=== PATIENT | female | born 1990 | race Caucasian/White ===

== ENCOUNTER 2020-03-14 17:58 | Outpatient (RCR) | payer BC, SELFPAY ==
[2020-03-14 18:31] VITALS: BP 118/78; PULSE 97
[2020-03-14 18:42] VITALS: BP 118/78; PULSE 94
== END 2020-04-05 08:07 | disposition home or self-care (01) ==
LOC: ANHOBOP 17:58
PROVIDERS: PCP Advanced Practice Midwife; Visit Provider Advanced Practice Midwife
DX: O36.8130 Decreased fetal movements, third trimester, not applicable or unspecified (principal); Z3A.37 37 weeks gestation of pregnancy
CPT/HCPCS: 59025

== ENCOUNTER 2020-04-03 10:33 | Inpatient (IN) | payer BC, SELFPAY ==
[2020-04-03] VITALS (159 sets, daily range): BP systolic 86–140; BP diastolic 47–108; PULSE 74–189; TEMP 36.4–38.1; O2SAT 86–100; BMI 31.8
--- NOTE | 2020-04-03 10:33 | LDADM ---
This patient, Yvonne Guzman, was admitted to Labor/Delivery/Recovery 102 on 04/03/20 at 10:33. Plans for labor, pain management and were discussed with patient. Patient/family oriented to hospital policies and general routines including ID bracelet, bed and alarms, visiting hours, pain management, procedures, bathroom and other care routines, personal items, smoking policy, room service/diet and guest tray routines, infant security routines, and visiting hours. Patient/Family are encouraged to report perceived risks to care and to ask questions if they do not understand what they are told or what they should do. See OBIX for further documentation.
[2020-04-03 11:38] LABS: Basophils Percent Auto 0.3 % (0.2-1.2); Eosinophils Absolute Auto 0.2 K/mm3 (0-0.3); Hematocrit 35.5 % (37.0-47.0); Immature Granulocyte Absolute 0.05 K/mm3 (0.00-0.031); Immature Granulocyte Percent A 0.5 % (0-0.5); Lymphocytes Absolute Auto 1.95 K/mm3 (0.9-3.2); Lymphocytes Percent Auto 19.8 % (18.3-44.2); Mean Corpuscular HGB Conc 33.8 g/dl (32-36); Mean Corpuscular Hemoglobin 30.5 pg (26-34); Mean Corpuscular Volume 90.1 fl (80-100); Mean Platelet Volume 11.9 fl (7.4-10.4); Monocytes Percent Auto 10.3 % (2.6-8.5); Neutrophils Absolute Auto 6.6 K/mm3 (1.3-6.7); Neutrophils Percent Auto 67.1 % (45.5-73.1); Platelet Count Result 219 k/mm3 (150-375); Red Blood Count 3.94 M/mm3 (4.2-5.4); Red Cell Distribution Width 13.4 % (11.5-14.5); White Blood Count 9.8 K/mm3 (4.5-10.0)
[2020-04-03] MEDS: LACTATED RINGERS 1,000 ML 125 ML IV CONT ×3 (11:45→20:18)
[2020-04-03] MEDS: OXYTOCIN 30 UNITS/NS 500 ML 30 UNITS/500 ML BAG IV CONT (11:45)
--- NOTE | 2020-04-03 13:35 | WPDANESEPP ---
Anes - Eval Pre Procedure Procedure: labor epidural Date/Time: 04/03/20 13:35 Surgeon: Ruben meraz Preop Diagnosis: Pain during labor Pre Op Diagnosis: IOL Patient Data Age: 30 Gender: F Height: 5 ft 4 in Weight: 84 kg Last Vital Signs Pulse 83 04/03/20 13:31 BP 128/91 H 04/03/20 13:31 Allergies Allergy/AdvReac Type Severity Reaction Status Date / Time amoxicillin Allergy Blister Verified 03/21/20 14:47 ceftriaxone Allergy Blister Verified 03/21/20 14:47 Sulfa (Sulfonamide Allergy Swelling Verified 03/21/20 14:47 Antibiotics) of Lip/Tongue/Throat Home Medications Medication Instructions Recorded Confirmed Type PNV cmb#95-ferrous fumarate-FA 1 tablet PO DAILY 03/21/20 03/21/20 History [] cetirizine [Zyrtec] 10 mg PO DAILY 03/21/20 03/21/20 History levothyroxine 50 mcg PO DAILY 03/21/20 03/21/20 History pantoprazole 40 mg PO QAM 03/21/20 03/21/20 History Laboratory Tests 04/03/20 04/03/20 11:17 11:17 WBC 9.8 K/mm3 K/mm3 (4.5-10.0) RBC 3.94 M/mm3 L M/mm3 (4.2-5.4) Hgb 12.0 g/dL g/dL (12.0-15.0) Hct 35.5 % L % (37.0-47.0) MCV 90.1 fl fl (80-100) MCH 30.5 pg pg (26-34) MCHC 33.8 g/dl g/dl (32-36) RDW 13.4 % % (11.5-14.5) Plt Count 219 k/mm3 k/mm3 (150-375) MPV 11.9 fl H fl (7.4-10.4) Immature Gran % (Auto) 0.5 % % (0-0.5) Neut % (Auto) 67.1 % % (45.5-73.1) Lymph % (Auto) 19.8 % % (18.3-44.2) Nance % (Auto) 10.3 % H % (2.6-8.5) Eos % (Auto) 2.0 % % (0-4.4) Baso % (Auto) 0.3 % % (0.2-1.2) Lymph # (Auto) 1.95 K/mm3 K/mm3 (0.9-3.2) Nance # (Auto) 1.0 K/mm3 H K/mm3 (0.1-0.6) Eos # (Auto) 0.2 K/mm3 K/mm3 (0-0.3) Baso # (Auto) 0.0 K/mm3 K/mm3 (0.0-0.1) Abs Immat Gran (auto) 0.05 K/mm3 H K/mm3 (0.00-0.031) Absolute Neuts (auto) 6.6 K/mm3 K/mm3 (1.3-6.7) Absolute Nucleated RBC 0.0 K/mm3 K/mm3 (0.0-0.012) Nucleated RBC % 0.0 % % (0.0-0.2) RPR Pending : gestational age (URIEL 03/30/2020) Patient hx anesthesia problems: none Family hx anesthesia problems: none COUNTS INCLUDE 234 BEDS AT THE [facility] Past Medical History Medical History Hypothyroid Obese Family History Family History Mother Hypertension Diabetes type 2, controlled Rheumatoid arteritis Depression Father Hypertension Acute myocardial infarction Grandparent Cerebrovascular accident Brain aneurysm Sibling Depression Degenerative disc disease Asthma Social History Social History Smoking status: Never smoker Second hand tobacco smoke exposure: No Substance use: never Spiritual care concerns: No Exam Day of Procedure 04/03/20 13:35 Patient weight: obese Heart: regular rate and rhythm Lungs: clear to auscultation Neurological: alert and oriented
--- NOTE | 2020-04-03 22:19 | WPDOBADMIT ---
Obstetrics - Admit Note Admission Note: 30 y/o G1 @ 40w4d sent over for induction of labor. Pt is post dates with oligohydramnios. Discussed risk vs benefit and pt agreeable to induction. record reviewed. No pertinent additions to the history and/or any subsequent changes in the physical findings that are not consistent with the expected course of the were found. Additions to the history and/or subsequent changes in the physical findings follow. None.
[2020-04-04] VITALS (31 sets, daily range): BP systolic 105–149; BP diastolic 34–116; PULSE 74–143; RESP 16–18; TEMP 36.6–37.3; O2SAT 98–100
[2020-04-04] MEDS: OXYTOCIN 30 UNITS/NS 500 ML 30 UNITS/500 ML BAG 125 UNITS IV CONT (00:27)
--- NOTE | 2020-04-04 01:44 | PM.OBPRVD ---
OB - Delivery Note Procedure Delivery date: 04/03/20 events: Labor Induction and Low Fluid Volume in Amniotic Sac Intrapartal events: None Delivery monitor: external FHT, external uterine and internal FHT Route of delivery: Episiotomy description: None Laceration description: Perineal - 2nd Degree Delivery repair: vicryl Estimated blood loss (mL): 312 Anesthesia type: Epidural Baby Date of : 04/03/20 Time of : 23:58 Weeks of gestation at delivery: 40 Infant gender: Female Weight (pounds): 8 Weight (ounces): 0 presentation: vertex position: Left Occiput Anterior Placenta delivery description: Spontaneous cord vessel description: 3 Vessels score one minute: 8 score five minutes: 9
[2020-04-04] MEDS: IBUPROFEN 600 MG TABLET PO ×4 (02:00→21:09)
[2020-04-04] MEDS: LACTATED RINGERS 300 ML 999 ML IV CONT (03:15)
--- NOTE | 2020-04-04 03:23 | OBPPTRN ---
Patient transferred to post room #290 via wheelchair. Support person present. Oriented to unit, room, information board, rooming in, admission packet and security measures. Patient verbalizes understanding. with patient.
[2020-04-04 07:45] LABS: Rapid Plasma Reagin Non-Reactive (NonReactive)
--- NOTE | 2020-04-04 08:34 | P.PNOB_ITS ---
OB - PN: Subj Subjective Date/time seen: 04/04/20 08:34 Patient comments: no complaints, pain well controlled, incisional pain, tolerating diet and flatus present OB - PN: Obj Data Labs CBC & Chem 7: 04/03/20 11:17 Labs: Laboratory Results - last 24 hr 04/03/20 04/03/20 04/03/20 11:17 11:17 11:17 WBC 9.8 RBC 3.94 L Hgb 12.0 Hct 35.5 L MCV 90.1 MCH 30.5 MCHC 33.8 RDW 13.4 Plt Count 219 MPV 11.9 H Immature Gran % (Auto) 0.5 Neut % (Auto) 67.1 Lymph % (Auto) 19.8 Guadalupe % (Auto) 10.3 H Eos % (Auto) 2.0 Baso % (Auto) 0.3 Lymph # (Auto) 1.95 [place]upe # (Auto) 1.0 H Eos # (Auto) 0.2 Baso # (Auto) 0.0 Abs Immat Gran (auto) 0.05 H Absolute Neuts (auto) 6.6 Absolute Nucleated RBC 0.0 Nucleated RBC % 0.0 RPR Non-reactive Blood Type O Positive Antibody Screen Negative OB - PN A/P Plan day: 1 Plan: routine care Comments: No problems, routine care Time Spent With Patient Time: Total time spent is greater than 50% in coordination of care (as documented) at patient's floor/unit and/or counseling patient: Exam Const: General: comfortable, no acute distress and alert Resp: Effort & Inspection: normal respiratory effort Auscultation: no crackles, no rales and no rhonchi Cardio: Rate: regular rate Heart sounds: no click, no murmurs and no rubs GI: Inspection: non-distended GI Palp: No Tenderness to palpation present (GI) Auscultation: normal bowel sounds Other: Incision - CDI Extrem: General: normal to inspection, no pedal edema and no calf tenderness
[2020-04-04] MEDS: DOCUSATE SODIUM 100 MG CAPSULE PO (08:49)
[2020-04-04] MEDS: MULTIVIT/MIN/PREN/FOL AC/IRON TABLET 1 TAB PO (08:49)
--- NOTE | 2020-04-04 08:58 | WPDANLDPN2 ---
Anes-Prog Note L&D Date/Time: 04/04/20 08:58 Comfortable throughout: labor and delivery Neuraxial method: epidural Epidural/Spinal procedure site: clean & non-tender Neuro status: Neuro function grossly intact. Cardiovascular status: normal Respiratory status: normal Airway patency: baseline Mental status: baseline Post-Op hydration status: normal Vital Signs: Last Vital Signs Temp 36.6 C 04/04/20 03:23 Pulse 98 04/04/20 07:00 Resp 16 04/04/20 07:00 BP 119/78 04/04/20 03:23 Pulse Ox 100 04/04/20 07:00 I/O: Intake & Output 04/03/20 04/04/20 04/04/20 23:59 07:59 15:59 Intake Total 1100 500 Output Total 472 Balance 1100 28 Post-procedural complaints: nausea mild, no treatment and pruritis mild, no treatment Patient feedback: Patient satisfied with anesthetic care.
--- NOTE | 2020-04-04 11:20 | PC.NURSE ---
Consulted with patient, mother reports infant is fussy and has difficulties with latching. Mother is using the nipple shield for all feedings. Observed has a possible tight tongue. Discussed how the tongue may impact latch and empting the breast. Mother has bruising to right nipple from shallow latch. Discussed nipple shield precautions and possible complications. Instructions given on application and cleaning of shield. Patient able to return demonstration on proper application of shield. Discussed the need to initiate pumping if continues to nurse with the shield. Patient verbalizes understanding. Reviewed feeding cues, frequencies, duration of feedings, feeding elimination flow sheet, and signs of adequate intake. Demonstrated stimulation techniques to wake infant for feeding. Assisted with to breast with nipple shield. Reviewed positioning/alignment in cross cradle, holding breast in U hold and guided asymmetrical latch on. Infant was able to latch correctly. Infant nursed eagerly with steady draws for bursts with occasional swallowing noted. Reviewed signs of a correct latch, effective nursing and suck swallow ratio. Infant was able to maintain latch without discomfort to mother. Nipple care reviewed. Suggested to stimulate while feeding to keep awake and nursing effectively for increased intake and to assist infant with maintaining deep latch. Instructed mother to call out for RN assistance if she is unable to latch for feeding or she has discomfort with nursing. Instructed feeding should be initiated three hours from start of last feeding or if feeding cues are noted before. Mother voiced understanding of information shared.
--- NOTE | 2020-04-04 12:00 | PC.NURSE ---
Instructions given on mother's breast pump from home reviewed care and usage, pumping schedule, nipple care, and collection and storage of breast milk. Encouraged [id number], breast massage and manual expression to stimulate supply. Assessed patient for correct flange size, placement and draw. Patient verbalizes and demonstrates understanding of instructions.
[2020-04-05] MEDS: IBUPROFEN 600 MG TABLET PO (04:10)
[2020-04-05 04:17] LABS: Hemoglobin 8.3 g/dL (12.0-15.0)
[2020-04-05 07:30] VITALS: BP 109/73; PULSE 90; RESP 18; TEMP 36.9; O2SAT 98
[2020-04-05 07:34] VITALS: PULSE 104; RESP 18; O2SAT 98
--- NOTE | 2020-04-05 07:46 | PM.OBPNVD ---
OB - PN: Subj Subjective Date/time seen: 04/05/20 07:46 Patient comments: no complaints, pain well controlled and other (Lochia similar to menses) [place] baby status: doing well OB - PN: Obj Data Labs CBC & Chem 7: 04/05/20 04:09 Labs: Laboratory Results - last 24 hr 04/05/20 04:09 Hgb 8.3 L D Hct 25.0 L OB - PN A/P Plan day: 2 (s/p vaginal delivery, doing well) Plan: routine care, discharge home and other (Follow up in office in 4 weeks) Time Spent With Patient Time: Total time spent is greater than 50% in coordination of care (as documented) at patient's floor/unit and/or counseling patient: Exam Const: General: no acute distress GI: Inspection: other (Fundus firm and nontender below umbilicus) GI Palp: Yes Soft to palpation and No Tenderness to palpation present (GI) Extrem: General: no edema
[2020-04-05] MEDS: POLYSACCHARIDE IRON COMPLEX 150 MG CAPSULE PO (09:05)
[2020-04-05] MEDS: MULTIVIT/MIN/PREN/FOL AC/IRON TABLET 1 TAB PO (09:05)
[2020-04-05] MEDS: DOCUSATE SODIUM 100 MG CAPSULE PO (09:05)
--- NOTE | 2020-04-05 11:20 | PC.NURSE ---
Mother is able to independently latch with appropriate positioning/alignment using nipple shield. She denies any nipple discomfort, is feeding as required and waking to feed if needed. Infant continues with effective feeding and requires supplementation after each . is more eager with attempts and duration after frenulectomy. Mother will continue to pump and offer EBM as available as part of supplement. is currently meeting outcomes for weight, output, jaundice and feeding frequencies. Mother states she feels comfortable with current feeding plan of bottle/ at home. Reviewed techniques for tongue training to assist infant with deep latch and tongue thrusting. Discussed signs when may require increased supplementation and when may be ready to decrease supplementation. Discussed mother can discontinue pumping once infant is able adequately empty breast to satisfaction and is gaining weight. Advised to review discontinuation of supplementation with ICP first. Reviewed transition to breast milk, signs of adequate intake, and engorgement/relief. Instructed to call ICP if intake/output less than required. Reviewed regular medications mother is taking. Information provided per [place]. Reviewed community resources on the [facility] website and in the Mom/Baby guide. Information on outpatient services provided. Mother has no further questions at this time
--- NOTE | 2020-04-05 13:08 | PC.NURSE ---
Patient viewed the discharge video Mother & Baby Care, The First Two Weeks . Patient was given the opportunity and encouraged to ask questions. Patient verbalized understanding of information shared and has been given the mother/baby guide for home reference.
[2020-04-06 08:33] VITALS: BP 111/79; PULSE 88; RESP 20; O2SAT 100
--- NOTE | 2020-05-01 07:43 | PM.OBDSVD ---
DS: Admitting Diagnosis Admitting Diagnosis Admitting Diagnosis: IOL DS: Discharge Diagnosis Discharge Diagnosis (1) Vaginal delivery: Code(s): O80 - Encounter for full-term uncomplicated delivery Status: Acute OB - DS: Summary Hospital Course Time spent discussing smoking cessation with patient: 3 to 10 minutes OB Procedures : None OB Procedures Intrapartum: Spontaneous Vag Delivery OB Procedures: : None Peripartum Data Delivery Method: Natural Vaginal Laceration description: Perineal - 2nd Degree complications: none Time Spent with Patient Time attestation: Total time spent providing and/or coordinating discharge services: DS: Data Data Completed and Pending Completed studies during hospitalization: Pending at discharge 04/04/20 01:50 Surgical [PTH] Routine Discharge Plan Discharge Consulting providers: Shakila Wright Discharging Clinician: Andree Contreras Anticipated Discharge Date/Time: 04/05/20 07:48 Patient Disposition: Home, Self-Care Activity: other - see discharge instructions Diet: regular Discharge Instructions: Education: Mom and Baby Guide Given to: Mother Follow-Up: Call your delivering provider's office for an appointment to be seen in: 4 Weeks Mom and baby should come to the [facility] for the follow-up appointment. Appointment Date/Time: March at 8:00 a.m. What to expect at your follow-up visit: Blood Pressure Check Physical Assessment Call [phone] if you are unable to keep your appointment time. BREAST CARE: * Wear a snug supportive bra. * For engorgement discomfort: Breast Feeding: * Apply warm moist washcloths * Express milk as needed to relieve engorgement * Wear loose clothing * For sore nipples: * Identify correct latch-on * Apply warm moist washcloths before and after nursing * Air dry nipples after nursing * May apply Lansinoh cream to nipples EPISIOTOMY/PERINEAL CARE: * Until bleeding stops, use your maureen bottle after urinating * Change your pad frequently throughout the day * You may take sitz baths several times a day (fill your bathtub with warm water and soak for 20 minutes.) Do NOT bathe in the water * No tub baths until seen by your physician - You may shower ACTIVITY: * Rest as much as possible. * Do not exercise or lift anything heavier than your baby (such as laundry or other children.) * Avoid stairs or driving as much as possible. * Do not put anything into the vagina. No douching, tampons, or sexual activity until seen by physician. NOTIFY PHYSICIAN IF YOU HAVE ANY QUESTIONS OR IF ANY OF THE FOLLOWING SYMPTOMS OCCUR: * If your perineum becomes red, swollen, or more painful than what you have experienced in the hospital. * If your vaginal bleeding becomes foul smelling. * If your vaginal bleeding becomes more heavy than a period or if your bleeding changes from pink to bright red. However, you may pass an occasional walnut-sized clot once or twice for the first week . * If you experience a sharp, shooting pain in you calves. * If you discover a hard, reddened area on your breast or if you experience flu-like symptoms. DIET: * Eat regular, well-balanced meals. * Drink plenty of fluids daily. If , drink to thirst. Stand Alone Forms: General Discharge Information Follow-up/Referrals: Ruben Espinosa MD [Physician] - Discharge Medications: New ibuprofen 600 mg Tablet 600 mg PO Q6H PRN (Reason: Cramping) Qty: 60 RF: 0 Continued cetirizine [Zyrtec] 10 mg Tablet 10 mg PO DAILY RF: 0 levothyroxine 50 mcg Tablet 50 mcg PO DAILY RF: 0 pantoprazole 40 mg Tablet,Delayed Release (Dr/Ec) 40 mg PO QAM RF: 0 PNV cmb#95-ferrous fumarate-FA [] 28 mg iron- 800 mcg Tablet 1 tablet PO DAILY RF:
== END 2020-04-05 14:30 | disposition home or self-care (01) | DRG 806 ==
LOC: ANHOB2 04-05 13:16 → ANHLDR 04-06 09:50 → ANHOB2 04-06 09:50
PROVIDERS: Admitting Provider Obstetrics & Gynecology; PCP Advanced Practice Midwife; Visit Provider Obstetrics & Gynecology
DX: O41.03X0 Oligohydramnios, third trimester, not applicable or unspecified (principal); O75.2 Pyrexia during labor, not elsewhere classified; Z37.0 Single live birth; Z3A.40 40 weeks gestation of pregnancy; O48.0 Post-term pregnancy; O70.1 Second degree perineal laceration during delivery; O99.284 Endocrine, nutritional and metabolic diseases complicating childbirth; E03.9 Hypothyroidism, unspecified; O99.214 Obesity complicating childbirth; E66.9 Obesity, unspecified
CPT/HCPCS: 36415; 85014; 85018; 85025; 86592; 86850; 86900; 86901; 88307; A9270; J0131; J2590; J2795; J7120

== ENCOUNTER 2020-04-11 22:08 | Emergency (ER) | payer BC, SELFPAY ==
--- NOTE | ~2020-04-11 | CT_ITS ---
EXAMINATION: CT abdomen pelvis wo con DATE: 04/11/2020 22:50 INDICATION: Right-sided abdominal pain, vaginal delivery eight days ago TECHNIQUE: Computed tomography (CT) of the abdomen and pelvis was performed without intravenous contr ast. The dose-length product (DLP) was 476.17 mGy-cm. Automated exposure control and iterative recons truction technique were employed. COMPARISON: None FINDINGS: The lung bases are clear. The heart size is normal. The liver, spleen, pancreas, gallbladde r, and adrenal glands are normal. The kidneys are unremarkable. No pathologically enlarged abdominal or pelvic lymph nodes are identified. There is no free intraperitoneal gas or evidence of bowel obstr uction. The appendix is normal. The uterus is enlarged. There is hyperattenuating material in the endometrial canal and endocervical canal. The visualized osseous structures are unremarkable. IMPRESSION: 1. appearance of the uterus with hyperattenuating material within the endometrial and endo cervical canal. Findings could reflect hemorrhage. Evaluation is limited without intravenous contrast . Recommend direct visualization and consider pelvic ultrasound. These findings and recommendations w ere discussed with Dr. Kenia Plummer MD in the Emergency Department at 2314 hours on 04/11/2020. Reviewed, dictated and finalized at location A. IMPRESSION: 1. appearance of the uterus with hyperattenuating material within th e endometrial and endocervical canal. Findings could reflect hemorrhage. Evalua tion is limited without intravenous contrast. Recommend direct visualization an d consider pelvic ultrasound. These findings and recommendations were discussed with Dr. Kenia Plummer MD in the Emergency Department at 2314 hours on 020.
[2020-04-11 22:19] VITALS: BP 120/77; PULSE 74; RESP 20; TEMP 37; O2SAT 100
--- NOTE | 2020-04-11 22:36 | ED.GENADULT ---
HPI - General Adult General Chief complaint: Unspecified Stated complaint: SHARP SHOOTING SIDE PAINS Time Seen by Provider: 04/11/20 22:17 Source: patient History of Present Illness HPI narrative: Patient is a 30 y/o female complaining or right mid abdominal pain starting 1 hour ago. She describes her pain as sharp and rates it as 10/10. Her pain radiates to upper abdomen. There is no alleviating or exacerbating factor. Her pain resolved spontaneously. She has no vomiting, diarrhea or dysuria. She had vaginal delivery 8 days ago. She also feels some generalized weakness, dizziness. Related Data Home Medications Medication Instructions Recorded Confirmed PNV cmb#95-ferrous fumarate-FA 1 tablet PO DAILY 03/21/20 03/21/20 [] cetirizine [Zyrtec] 10 mg PO DAILY 03/21/20 03/21/20 levothyroxine 50 mcg PO DAILY 03/21/20 03/21/20 pantoprazole 40 mg PO QAM 03/21/20 03/21/20 Allergies Allergy/AdvReac Type Severity Reaction Status Date / Time amoxicillin Allergy Blister Verified 04/11/20 22:35 ceftriaxone Allergy Blister Verified 04/11/20 22:35 Sulfa (Sulfonamide Allergy Swelling Verified 04/11/20 22:35 Antibiotics) of Lip/Tongue/Throat Review of Systems Constitutional: Constitutional: Denies chills, Denies fever(s), Denies headache(s) and Reports weakness Eyes: Eyes: Denies blurry vision ENT: Denies headache(s) and Denies neck pain Cardiovascular: Cardiovascular: Denies chest pain and Denies dyspnea Respiratory: Respiratory: Denies cough and Denies dyspnea Gastrointestinal: Gastrointestinal: Reports abdominal pain, Denies diarrhea, Denies nausea and Denies vomiting Genitourinary: Genitourinary: Denies hematuria, Denies dysuria and Reports other (post vaginal bleed) Musculoskeletal: Musculoskeletal: Denies back pain and Denies neck pain Neurologic: Denies headache(s) and Reports weakness PMFSH Past Medical History Medical History Hypothyroid Obese Family History Family History Mother Hypertension Diabetes type 2, controlled Rheumatoid arteritis Depression Father Hypertension Acute myocardial infarction Grandparent Cerebrovascular accident Brain aneurysm Sibling Depression Degenerative disc disease Asthma Social History Social History Smoking status: Never smoker Second hand tobacco smoke exposure: No Substance use: never Gender identity (if verbalized by the patient): Female Spiritual care concerns: No Exam Const: General: no acute distress and well developed Orientation/consciousness: oriented to person, oriented to place, oriented to time and patient oriented x3 HENMT: Head: normocephalic Ears: external ears normal General nose exam: Normal external nose present Eyes: General: appearance normal, both eyes and all related structures Conjunctivae: conjunctivae normal Neck: Neck: normal visual inspection and full ROM Chest: Chest palpation & inspection: normal inspection of the chest and no tenderness Resp: Effort & Inspection: normal respiratory effort Auscultation: clear to auscultation bilaterally Cardio: Rate: regular rate Rhythm: regular rhythm GI: GI Palp: No abdominal tenderness and Yes Soft to palpation Skin: General skin exam: normal color and turgor normal Neuro: General: oriented to person, oriented to place, oriented to time and patient oriented x3 Cognition (Neuro): normal cognition Extrem: General: normal to inspection, full ROM and no pedal edema Psych: Appearance: grossly normal Mental Status: mental status grossly normal Affect: normal affect Course Consultations Consultation #1: Discussed with Dr. Espinosa, who agrees with plan for discharge and follow up. Date: 04/11/20 Time: 23:46 Vital Signs Vital signs: Vital Signs Temperature 37.0 C 04/11/20 22:19 P
[2020-04-11 22:50] LABS: Basophils Absolute Auto 0.1 K/mm3 (0.0-0.1); Basophils Percent Auto 0.8 % (0.2-1.2); Eosinophils Absolute Auto 0.4 K/mm3 (0-0.3); Eosinophils Percent Auto 4.9 % (0-4.4); Hematocrit 33.9 % (37.0-47.0); Immature Granulocyte Absolute 0.03 K/mm3 (0.00-0.031); Immature Granulocyte Percent A 0.4 % (0-0.5); Lymphocytes Absolute Auto 2.67 K/mm3 (0.9-3.2); Lymphocytes Percent Auto 34.4 % (18.3-44.2); Mean Corpuscular HGB Conc 32.4 g/dl (32-36); Mean Corpuscular Volume 92.4 fl (80-100); Mean Platelet Volume 9.9 fl (7.4-10.4); Monocytes Absolute Auto 0.9 K/mm3 (0.1-0.6); Neutrophils Absolute Auto 3.7 K/mm3 (1.3-6.7); Neutrophils Percent Auto 47.5 % (45.5-73.1); Platelet Count Result 402 k/mm3 (150-375); Red Blood Count 3.67 M/mm3 (4.2-5.4); Red Cell Distribution Width 13.7 % (11.5-14.5); White Blood Count 7.8 K/mm3 (4.5-10.0)
[2020-04-11 23:01] LABS: Alanine Aminotransferase 20 U/L (4-35); Albumin Level 3.6 g/dL (3.5-5.1); Alkaline Phosphatase 110 U/L (38-126); Anion Gap 8 mmol/L (8-16); Aspartate Amino Transferase 26 U/L (14-36); Bilirubin,Total 0.3 mg/dL (0.2-1.3); Blood Urea Nitrogen 20 mg/dL (7-17); Calcium 8.8 mg/dL (8.4-10.2); Carbon Dioxide 22 mmol/L (22-30); Chloride 107 mmol/L (98-107); Estimated CRCL calculation 99 ml/min; Estimated Glomerular Filt Rate > 60; Glucose 100 mg/dL (65-105); Potassium 4.1 mmol/L (3.4-5.0); Sodium 137 mmol/L (137-145)
[2020-04-11 23:13] LABS: Add Urine Microscopic? YES; Appearance Urine Clear (Clear); Bacteria Urine 1+ /hpf; Bilirubin Urine Negative (Negative); Blood Urine 3+ (Negative); Color Urine Yellow (Yellow); Glucose Urine UA Negative (Negative); Ketones Urine Negative (Negative); Leukocyte Esterase Ur 3+ LEU/UL (Negative); Mucus Urine Few /lpf; Nitrate Urine Negative (Negative); Protein Urine 1+ mg/dL (Negative); RBC Urine >75 /hpf (0-2); Squamous Epithelial Cell Urine Moderate /hpf (Few); Urobilinogen Urine Negative mg/dL (<2.0); WBC Urine >75 /hpf
[2020-04-11 23:20] LABS: INR 0.9
[2020-04-11 23:21] LABS: Partial Thromboplastin Time 25.8 SECONDS (22.3-36.8)
[2020-04-12 00:25] VITALS: BP 114/82; PULSE 69; RESP 17; O2SAT 97
== END 2020-04-12 00:25 | disposition home or self-care (01) ==
PROVIDERS: Emergency Provider Emergency Medicine; PCP Advanced Practice Midwife
DX: O90.89 Other complications of the puerperium, not elsewhere classified (principal); R10.11 Right upper quadrant pain; O99.285 Endocrine, nutritional and metabolic diseases complicating the puerperium; E03.9 Hypothyroidism, unspecified; E66.9 Obesity, unspecified; O99.215 Obesity complicating the puerperium
CPT/HCPCS: 36415; 74176; 80053; 81001; 84550; 85025; 85610; 85730; 87077; 87086; 87088; 87186; 99284

== ENCOUNTER 2022-05-02 10:08 | Outpatient (CLI) | payer BC, SELFPAY ==
[2022-05-02 10:43] VITALS: BP 109/69; PULSE 83
[2022-05-02 10:45] VITALS: BP 114/70; PULSE 82
[2022-05-02 10:46] VITALS: TEMP 36.9
[2022-05-02 10:58] VITALS: BP 114/70; PULSE 81
== END 2022-05-02 11:03 | disposition home or self-care (01) ==
LOC: ANHOBOP 10:13 → ANHOBPP 10:13
PROVIDERS: PCP Physician Assistant Medical; Visit Provider Obstetrics & Gynecology
DX: O41.8X90 Other specified disorders of amniotic fluid and membranes, unspecified trimester, not applicable or unspecified (principal)
CPT/HCPCS: 59025; 84112; 99199

== ENCOUNTER 2022-06-29 10:30 | Outpatient (CLI) | payer BC, SELFPAY ==
[2022-06-29] VITALS (10 sets, daily range): BP systolic 117–132; BP diastolic 72–80; PULSE 83–103; O2SAT 96–98
[2022-06-29 11:22] LABS: Basophils Percent Auto 0.4 % (0.2-1.2); Eosinophils Absolute Auto 0.2 K/mm3 (0-0.3); Eosinophils Percent Auto 2.3 % (0-4.4); Hematocrit 37.5 % (37.0-47.0); Hemoglobin 12.4 g/dL (12.0-15.0); Immature Granulocyte Absolute 0.06 K/mm3 (0.00-0.031); Immature Granulocyte Percent A 0.6 % (0-0.5); Lymphocytes Absolute Auto 2.27 K/mm3 (0.9-3.2); Lymphocytes Percent Auto 21.9 % (18.3-44.2); Mean Corpuscular HGB Conc 33.1 g/dl (32-36); Mean Corpuscular Hemoglobin 30.5 pg (26-34); Mean Corpuscular Volume 92.1 fl (80-100); Mean Platelet Volume 11.1 fl (7.4-10.4); Monocytes Absolute Auto 0.7 K/mm3 (0.1-0.6); Monocytes Percent Auto 6.9 % (2.6-8.5); Neutrophils Percent Auto 67.9 % (45.5-73.1); Platelet Count Result 231 k/mm3 (150-375); Red Blood Count 4.07 M/mm3 (4.2-5.4); Red Cell Distribution Width 13.2 % (11.5-14.5); White Blood Count 10.4 K/mm3 (4.5-10.0)
[2022-06-29 12:00] LABS: Appearance Urine Clear (Clear); Bilirubin Urine Negative (Negative); Blood Urine Negative (Negative); Color Urine Yellow (Yellow); Glucose Urine UA Negative (Negative); Ketones Urine Trace mg/dL (Negative); Leukocyte Esterase Ur Negative LEU/UL (NEGATIVE); Nitrate Urine Negative (Negative); Protein Urine Trace mg/dL (Negative); Specific Grav Ur 1.025 (1.001-1.035); Urobilinogen Urine 0.2 mg/dL (<2.0); pH Urine 6.5 (5.0-9.0)
[2022-06-29 12:10] LABS: Add Urine Microscopic? YES; Alanine Aminotransferase 15 U/L (6-35); Albumin Level 3.4 g/dL (3.5-5.1); Anion Gap 6 mmol/L (8-16); Aspartate Amino Transferase 19 U/L (14-36); Bacteria Urine Trace /hpf; Bilirubin,Total 0.4 mg/dL (0.2-1.3); Blood Urea Nitrogen 7 mg/dL (7-17); Calcium 8.4 mg/dL (8.4-10.2); Carbon Dioxide 22 mmol/L (22-30); Chloride 107 mmol/L (98-107); Estimated Glomerular Filt Rate > 60; Glucose 116 mg/dL (65-110); Mucus Urine Rare /lpf; Potassium 3.5 mmol/L (3.4-5.0); RBC Urine 0-2 /hpf (0-2); Sodium 135 mmol/L (137-145); Squamous Epithelial Cell Urine Few /hpf (Few); Uric Acid 4.6 mg/dL (2.5-7.5); WBC Urine 0-3 /hpf (0-3)
[2022-06-29 12:18] LABS: Creatinine Urine 188.6 mg/dL
[2022-06-29 12:28] LABS: Total Protein Urine Random < 5 mg/dL; Ur Ttl Prot Creatinine Ratio < 0.03 mg/mg (0-0.20)
[2022-06-29 12:35] LABS: Alkaline Phosphatase 152 U/L (38-126)
== END 2022-06-29 12:50 | disposition home or self-care (01) ==
LOC: ANHOBOP 10:36 → ANHOBPP 10:37
PROVIDERS: PCP Physician Assistant Medical; Visit Provider Obstetrics & Gynecology
DX: O13.9 Gestational [pregnancy-induced] hypertension without significant proteinuria, unspecified trimester (principal); Z3A.00 Weeks of gestation of pregnancy not specified
CPT/HCPCS: 36415; 59025; 80053; 81001; 82570; 84156; 84550; 85025; 87086; 99199

== ENCOUNTER 2022-07-01 11:17 | Outpatient (CLI) | payer BC, SELFPAY ==
--- NOTE | 2022-07-01 12:00 | PC.NURSE ---
Pt states she has had cough since last week. States noted fluid from vagina with coughing last night that she thought was urine. Denies fever. Had PI[facility] labs Friday from for elevated blood pressure. Denies any other complaint, other than fluid leaking.
[2022-07-01 12:35] VITALS: BP 125/84; PULSE 96
--- NOTE | 2022-07-01 12:35 | PC.NURSE ---
Dr. St on unit. Report given, pt has negative ROM and reactive FHT. OK to discharge home.
== END 2022-07-01 11:18 | disposition home or self-care (01) ==
LOC: ANHOBOP 12:25
PROVIDERS: PCP Physician Assistant Medical; Visit Provider Obstetrics & Gynecology
DX: O41.8X90 Other specified disorders of amniotic fluid and membranes, unspecified trimester, not applicable or unspecified (principal)
CPT/HCPCS: 59025; 84112

== ENCOUNTER 2022-07-09 06:08 | Inpatient (IN) | payer BC, SELFPAY ==
[2022-07-09] VITALS (166 sets, daily range): BP systolic 61–144; BP diastolic 10–91; PULSE 36–277; TEMP 36.6–37; O2SAT 82–100; BMI 31.8
--- NOTE | 2022-07-09 06:08 | LDADM ---
This patient, Yvonne Guzman, was admitted to Labor/Delivery/Recovery 107 on 07/09/22 at 06:08. Plans for labor, pain management and were discussed with patient. Patient/family oriented to hospital policies and general routines including ID bracelet, bed and alarms, visiting hours, pain management, procedures, bathroom and other care routines, personal items, smoking policy, room service/diet and guest tray routines, security routines, and visiting hours. Patient/Family are encouraged to report perceived risks to care and to ask questions if they do not understand what they are told or what they should do. See OBIX for further documentation.
[2022-07-09 06:58] LABS: Basophils Absolute Auto 0.1 K/mm3 (0.0-0.1); Basophils Percent Auto 0.5 % (0.2-1.2); Eosinophils Absolute Auto 0.2 K/mm3 (0-0.3); Hematocrit 40.2 % (37.0-47.0); Hemoglobin 13.3 g/dL (12.0-15.0); Immature Granulocyte Absolute 0.09 K/mm3 (0.00-0.031); Immature Granulocyte Percent A 0.8 % (0-0.5); Lymphocytes Absolute Auto 2.81 K/mm3 (0.9-3.2); Lymphocytes Percent Auto 25.8 % (18.3-44.2); Mean Corpuscular HGB Conc 33.1 g/dl (32-36); Mean Corpuscular Hemoglobin 30.6 pg (26-34); Mean Corpuscular Volume 92.6 fl (80-100); Mean Platelet Volume 11.2 fl (7.4-10.4); Monocytes Absolute Auto 1.1 K/mm3 (0.1-0.6); Monocytes Percent Auto 9.9 % (2.6-8.5); Neutrophils Absolute Auto 6.7 K/mm3 (1.3-6.7); Platelet Count Result 219 k/mm3 (150-375); Red Blood Count 4.34 M/mm3 (4.2-5.4); Red Cell Distribution Width 13.2 % (11.5-14.5); White Blood Count 10.9 K/mm3 (4.5-10.0)
[2022-07-09] MEDS: OXYTOCIN 30 UNITS/NS 500 ML 30 UNITS/500 ML BAG IV CONT (07:08)
[2022-07-09] MEDS: LACTATED RINGERS 1,000 ML 125 ML IV CONT ×3 (07:08→16:34)
--- NOTE | 2022-07-09 07:46 | PM.IMHP ---
H&P: HPI History of Present Illness Date/Time: 07/09/22 07:46 Chief Complaint: Induction of labor Review of Systems Review of Systems: All systems reviewed & are unremarkable except as noted in HPI and below Constitutional: Constitutional: Reports as per HPI and Reports no additional constitutional complaints Eyes: Eyes: Reports as per HPI ENT: Reports system reviewed and no additional complaints, except as documented Cardiovascular: Cardiovascular: Reports as per HPI Respiratory: Respiratory: Reports as per HPI Gastrointestinal: Gastrointestinal: Reports as per HPI Genitourinary: Genitourinary: Reports no additional female genitourinary complaints Musculoskeletal: Musculoskeletal: Reports no additional musculoskeletal complaints Integumentary/Breasts: Skin/Breast: Reports system reviewed and no additional complaints, except as docu Neurologic: Reports system reviewed and no additional complaints, except as documented Psychiatric: Psychiatric: Reports no additional psychiatric complaints Endocrine: Endocrine: Reports no additional endocrine complaints Hematologic/Lymphatic: Hematologic/Lymphatic: Reports no additional hematologic/lymphatic complaints Allergic/Immunologic: Allergic/Immunologic: Reports no additional allergic/immunologic complaints [facility] Past Medical History Medical History Asthma Hypothyroid Seasonal allergies Family History Family History Mother Hypertension Diabetes type 2, controlled Rheumatoid arteritis Depression Father Hypertension Acute myocardial infarction Grandparent Cerebrovascular accident Brain aneurysm Sibling Depression Degenerative disc disease Asthma Social History Social History Smoking status: Never smoker Second hand tobacco smoke exposure: No Substance use: never Gender identity (if verbalized by the patient): Female Spiritual care concerns: No Meds Home Medications and Allergies Home Medications Medication Instructions Recorded Confirmed Type cetirizine 10 mg tablet (Zyrtec) 10 mg PO DAILY 03/21/20 07/09/22 History pantoprazole 40 mg tablet,delayed 40 mg PO BID 03/21/20 07/09/22 History release vit no.95-ferrous 1 tablet PO DAILY 03/21/20 07/09/22 History fumarate 28 mg-folic acid 800 mcg tablet () albuterol sulfate 90 mcg/actuation 1 - 2 puff inhalation Q4-6H PRN 03/11/22 07/09/22 Rx aerosol inhaler (ProAir HFA) shortness of breath or wheezing #8.5 grams diphenhydramine HCl 25 mg capsule 25 mg PO QHS PRN Allergy Symptoms 03/11/22 07/09/22 History (Benadryl) montelukast 10 mg tablet 10 mg PO DAILY 03/11/22 07/09/22 History doxylamine succinate 25 mg tablet 12.5 mg PO HS 05/02/22 07/09/22 History (Unisom (doxylamine)) pyridoxine (vitamin B6) 25 mg 100 mg PO HS 05/02/22 07/09/22 History tablet levothyroxine 50 mcg tablet 50 mcg PO DAILY #90 tabs 05/29/22 07/09/22 Rx beclomethasone dipropionate 40 1 inh inhalation DAILY 07/03/22 07/09/22 History mcg/actuation HFA breath activated aerosol (Qvar RediHaler) prenat.vits,sofiya,ycf-eqvx-xduzt 1 tablet PO DAILY 07/03/22 07/03/22 History potassium 99 mg tablet 99 mg PO HS 07/09/22 07/09/22 History Allergies Allergy/AdvReac Type Severity Reaction Status Date / Time ceftriaxone [From Rocephin] Allergy Rash Verified 07/03/22 15:45 Sulfa (Sulfonamide Allergy Swelling Verified 07/03/22 15:45 Antibiotics) of Lip/Tongue/Throat Vital Signs Vital Signs - 24 hr 07/09/22 06:50 07/09/22 07:30 Pulse Rate 107 H 101 H Blood Pressure 119/82 116/82 Exam Const: General: cooperative and healthy appearing Orientation/consciousness: oriented to person, oriented to place, oriented to time and patient oriented x3 Limitations: no limitations HENMT: Head: nor
--- NOTE | 2022-07-09 07:47 | WPDOBADMIT ---
Obstetrics - Admit Note Admission Note: record reviewed. No pertinent additions to the history and/or any subsequent changes in the physical findings that are not consistent with the expected course of the were found. Additions to the history and/or subsequent changes in the physical findings follow. None.
--- NOTE | 2022-07-09 12:38 | WPDANESEPPF ---
Anes - Initial Pre Proc Eval Date/Time: 07/09/22 12:38 Surgeon: Ruben Espinosa MD Pre Op Diagnosis: IOL Patient Data Age: 32 Gender: F Height: 1.63 m Weight: 84 kg Last Vital Signs Temp 37.0 C 07/09/22 09:09 Pulse 94 07/09/22 12:35 BP 116/77 07/09/22 12:35 Allergies Allergy/AdvReac Type Severity Reaction Status Date / Time ceftriaxone [From Rocephin] Allergy Rash Verified 07/03/22 15:45 Sulfa (Sulfonamide Allergy Swelling Verified 07/03/22 15:45 Antibiotics) of Lip/Tongue/Throat Home Medications Medication Instructions Recorded Confirmed Type cetirizine 10 mg tablet (Zyrtec) 10 mg PO DAILY 03/21/20 07/09/22 History pantoprazole 40 mg tablet,delayed 40 mg PO BID 03/21/20 07/09/22 History release vit no.95-ferrous 1 tablet PO DAILY 03/21/20 07/09/22 History fumarate 28 mg-folic acid 800 mcg tablet () albuterol sulfate 90 mcg/actuation 1 - 2 puff inhalation Q4-6H PRN 03/11/22 07/09/22 Rx aerosol inhaler (ProAir HFA) shortness of breath or wheezing #8.5 grams diphenhydramine HCl 25 mg capsule 25 mg PO QHS PRN Allergy Symptoms 03/11/22 07/09/22 History (Benadryl) montelukast 10 mg tablet 10 mg PO DAILY 03/11/22 07/09/22 History doxylamine succinate 25 mg tablet 12.5 mg PO HS 05/02/22 07/09/22 History (Unisom (doxylamine)) pyridoxine (vitamin B6) 25 mg 100 mg PO HS 05/02/22 07/09/22 History tablet levothyroxine 50 mcg tablet 50 mcg PO DAILY #90 tabs 05/29/22 07/09/22 Rx beclomethasone dipropionate 40 1 inh inhalation DAILY 07/03/22 07/09/22 History mcg/actuation HFA breath activated aerosol (Qvar RediHaler) prenat.vits,sofiya,mdn-qhll-zmijx 1 tablet PO DAILY 07/03/22 07/03/22 History potassium 99 mg tablet 99 mg PO HS 07/09/22 07/09/22 History Laboratory Tests 07/09/22 07/09/22 07/09/22 06:45 06:45 06:45 WBC 10.9 K/mm3 H K/mm3 (4.5-10.0) RBC 4.34 M/mm3 M/mm3 (4.2-5.4) Hgb 13.3 g/dL g/dL (12.0-15.0) Hct 40.2 % % (37.0-47.0) MCV 92.6 fl fl (80-100) MCH 30.6 pg pg (26-34) MCHC 33.1 g/dl g/dl (32-36) RDW 13.2 % % (11.5-14.5) Plt Count 219 k/mm3 k/mm3 (150-375) MPV 11.2 fl H fl (7.4-10.4) Immature Gran % (Auto) 0.8 % H % (0-0.5) Neut % (Auto) 61.0 % % (45.5-73.1) Lymph % (Auto) 25.8 % % (18.3-44.2) Wallace % (Auto) 9.9 % H % (2.6-8.5) Eos % (Auto) 2.0 % % (0-4.4) Baso % (Auto) 0.5 % % (0.2-1.2) Lymph # (Auto) 2.81 K/mm3 K/mm3 (0.9-3.2) Wallace # (Auto) 1.1 K/mm3 H K/mm3 (0.1-0.6) Eos # (Auto) 0.2 K/mm3 K/mm3 (0-0.3) Baso # (Auto) 0.1 K/mm3 K/mm3 (0.0-0.1) Abs Immat Gran (auto) 0.09 K/mm3 H K/mm3 (0.00-0.031) Absolute Neuts (auto) 6.7 K/mm3 K/mm3 (1.3-6.7) Absolute Nucleated RBC 0.0 K/mm3 K/mm3 (0.0-0.012) Nucleated RBC % 0.0 % % (0.0-0.2) RPR Pending Blood Type O Positive Antibody Screen Negative Patient hx anesthesia problems: none Family hx anesthesia problems: none Results Review: All pre-operative results and documents have been reviewed as part of the pre-operative evaluation. [facility] Past Medical History Medical History Asthma Hypothyroid Seasonal allergies Family History Family History Mother Hypertension Diabetes type 2, controlled Rheumatoid arteritis Depression Father Hypertension Acute myocardial infarction Grandparent Cerebrovascular accident Brain aneurysm Sibling Depression Degenerative disc disease Asthma Social History Social History Smoking status: Never smoker Second hand tobacco smoke exposure: No Substance
[2022-07-09] MEDS: ONDANSETRON INJ 4 MG/2 ML VIAL IV PUSH (18:52)
--- NOTE | 2022-07-09 21:38 | PM.OBPRVD ---
OB - Delivery Note Procedure Delivery date: 07/09/22 Procedure: Induction method: AROM and Per Pitocin Protocol Delivery monitor: External FHT, External Uterine and Internal Uterine Route of delivery: Episiotomy description: None Laceration Description: Perineal - 2nd Degree Delivery repair: vicryl (3-0) Quantitative Blood Loss (ml): 102 Anesthesia type: Epidural Narrative: Mother and baby in stable condition. Cord gasses collected and handed off to staff. Baby Date of : 07/09/22 Time of : 20:50 Weeks of gestation at delivery: 39 gender: Female Weight (pounds): 6 Weight (ounces): 4 presentation: vertex position: Right Occiput Anterior Placenta delivery description: Spontaneous Cord Vessel Description: 3 Vessels score one minute: 8 score five minutes: 9
[2022-07-09] MEDS: IBUPROFEN 600 MG TABLET PO (21:41)
[2022-07-09] MEDS: BENZOCAINE 20% AER SPR (*SP) 56 GM CAN 1 SPRAY TOPICAL (23:36)
[2022-07-09] MEDS: WITCH HAZEL 40 PADS 1 PAD TOPICAL (23:36)
[2022-07-10 00:30] VITALS: BP 110/65; PULSE 94; RESP 18; TEMP 37.1
[2022-07-10] MEDS: HYDROcodone/acetaminophen (*CRX) 5-325 MG TABLET 1 TAB PO ×3 (00:40→11:51)
[2022-07-10 04:10] VITALS: BP 106/82; PULSE 86; RESP 18; TEMP 36.8
[2022-07-10 05:39] LABS: Hematocrit 33.4 % (37.0-47.0); Hemoglobin 10.9 g/dL (12.0-15.0)
--- NOTE | 2022-07-10 07:34 | WPDANLDPN2 ---
Anes-Prog Note L&D Date/Time: 07/10/22 07:34 Comfortable throughout: labor and delivery Neuraxial method: epidural Epidural/Spinal procedure site: clean & non-tender Neuro status: Neuro function grossly intact. Cardiovascular status: normal Respiratory status: normal Airway patency: baseline Mental status: baseline Post-Op hydration status: normal Vital Signs: Last Vital Signs Temp 36.8 C 07/10/22 04:10 Pulse 86 07/10/22 04:10 Resp 18 07/10/22 04:10 BP 106/82 07/10/22 04:10 Pulse Ox 100 07/09/22 20:42 O2 Del Method Room Air 07/10/22 00:30 Pain score (VAS): 1 I/O: Intake & Output 07/09/22 07/09/22 07/10/22 15:59 23:59 07:59 Intake Total 1000 2100 Output Total 713 Balance 1000 1387 Post-procedural complaints: none Patient feedback: Patient satisfied with anesthetic care.
--- NOTE | 2022-07-10 07:37 | PM.OBPNVD ---
OB - PN: Subj Subjective Date/time seen: 07/10/22 07:37 vaginal delivery day 1 OB - PN: Obj Data Labs 07/10/22 04:23 Labs: Laboratory Results - last 24 hr 07/09/22 07/10/22 06:45 04:23 Hgb 10.9 L Hct 33.4 L Antibody Screen Negative OB - PN A/P Plan day: 1 Time Spent With Patient Time: Total time spent is greater than 50% in coordination of care (as documented) at patient's floor/unit and/or counseling patient: Review of Systems Review of Systems: All systems reviewed & are unremarkable except as noted in HPI and below Exam Const: General: cooperative, healthy appearing and comfortable
[2022-07-10] MEDS: IBUPROFEN 600 MG TABLET PO ×2 (07:57→23:55)
[2022-07-10 08:10] VITALS: BP 131/81; PULSE 91; RESP 16; TEMP 37.6; O2SAT 99
[2022-07-10 12:00] VITALS: BP 106/65; PULSE 99; RESP 16; TEMP 36.8; O2SAT 98
[2022-07-10 15:50] LABS: Rapid Plasma Reagin Non-Reactive (NonReactive)
[2022-07-10 16:00] VITALS: BP 115/75; PULSE 78; RESP 18; TEMP 36.9; O2SAT 97
[2022-07-10 20:10] VITALS: BP 108/62; PULSE 103; RESP 17; TEMP 37.1
--- NOTE | 2022-07-11 06:16 | PM.OBPNVD ---
OB - PN: Subj Subjective Date/time seen: 07/11/22 06:16 s/p vaginal delivery day 2 OB - PN: Obj Data Labs 07/10/22 04:23 Labs: Laboratory Results - last 24 hr 07/09/22 06:45 RPR Non-reactive OB - PN A/P Plan day: 2 Plan: routine care and discharge home Time Spent With Patient Time: Total time spent is greater than 50% in coordination of care (as documented) at patient's floor/unit and/or counseling patient: Review of Systems Review of Systems: All systems reviewed & are unremarkable except as noted in HPI and below Exam Const: General: cooperative, healthy appearing and comfortable Chest: Chest palpation & inspection: normal inspection of the chest Resp: Effort & Inspection: normal respiratory effort
[2022-07-11] MEDS: IBUPROFEN 600 MG TABLET PO (08:18)
[2022-07-11 08:45] VITALS: BP 125/69; PULSE 90; RESP 18; TEMP 36.9; O2SAT 98
--- NOTE | 2022-07-11 18:40 | PM.OBDSVD ---
DS: Admitting Diagnosis Discharge Date 07/11/22 Admitting Diagnosis IOL OB - DS: Summary OB Procedures : None OB Procedures Intrapartum: Spontaneous Vag Delivery OB Procedures: : None Time Spent with Patient Time attestation: Total time spent providing and/or coordinating discharge services: Discharge Plan Discharge Attending physician on discharge: Ruben Espinosa Consulting providers: Mago Hull ; David Hendrix ; Onel Wolf ; Shakila Wright Discharging Clinician: Mago Hull Patient Disposition: Home, Self-Care Activity: pelvic rest Diet: regular Discharge Instructions: Education: Mom and Baby Guide Given to: Follow-Up: Call your delivering provider's office for an appointment to be seen in: 4 Weeks Mom and baby should come to the [facility] for the follow-up appointment. Appointment Date/Time: July 12, 2022 at 1:30 pm What to expect at your follow-up visit: Blood Pressure Check Physical Assessment Call [phone] if you are unable to keep your appointment time. BREAST CARE: * Wear a snug supportive bra. * For engorgement discomfort Bottle Feeding: * May apply ice packs EPISIOTOMY/PERINEAL CARE: * Until bleeding stops, use your maureen bottle after urinating * Change your pad frequently throughout the day * You may take sitz baths several times a day (fill your bathtub with warm water and soak for 20 minutes.) Do NOT bathe in the water * No tub baths until seen by your physician - You may shower ACTIVITY: * Rest as much as possible. * Do not exercise or lift anything heavier than your baby (such as laundry or other children.) * Avoid stairs or driving as much as possible. * Do not put anything into the vagina. No douching, tampons, or sexual activity until seen by physician. NOTIFY PHYSICIAN IF YOU HAVE ANY QUESTIONS OR IF ANY OF THE FOLLOWING SYMPTOMS OCCUR: * If your episiotomy or incision becomes red, swollen, or more painful than what you have experienced in the hospital. * If your vaginal bleeding becomes foul smelling. * If your vaginal bleeding becomes more heavy than a period or if your bleeding changes from pink to bright red. However, you may pass an occasional walnut-sized clot once or twice for the first week . * If you experience a sharp, shooting pain in you calves. * If you discover a hard, reddened area on your breast or if you experience flu-like symptoms. DIET: * Eat regular, well-balanced meals. * Drink plenty of fluids daily. Stand Alone Forms: General Discharge Information Follow-up/Referrals: Shakila Wright CNM [Certified Nurse Charge Account Authorizer] - 4 Weeks Discharge Medications: New ibuprofen 600 mg Tablet 600 mg PO Q6H PRN (Reason: Cramping) Qty: 30 0RF hydrocodone-acetaminophen 5-325 mg Tablet 1 tablet PO Q3H PRN (Reason: Moderate Pain (4-6)) Qty: 15 0RF Continued montelukast 10 mg tablet 10 mg PO DAILY albuterol sulfate [ProAir HFA] 90 mcg/actuation HFA aerosol inhaler 1 - 2 puff inhalation Q4-6H PRN (Reason: shortness of breath or wheezing) Qty: 8.5 2RF pyridoxine (vitamin B6) 25 mg Tablet 100 mg PO HS cetirizine [Zyrtec] 10 mg Tablet 10 mg PO DAILY PNV cmb#95-ferrous fumarate-FA [] 28 mg iron- 800 mcg Tablet 1 tablet PO DAILY prenat.vits,sofiya,vwe-fnry-jblbz Tablet 1 tablet PO DAILY Qvar RediHaler 40 mcg/actuation HFA aerosol breath activated 1 inh inhalation DAILY Rx Instructions: Rinse mouth and spit after each use. levothyroxine 50 mcg tablet 50 mcg PO DAILY Qty: 90 0RF Rx Instructions: Due for appt, no additional refills until appt made Discontinued diphenhydramine HCl [Benadryl] 25 mg capsule 25 mg PO QHS PRN (Reason: Allergy Symptoms) Unisom (doxylamine) 25 mg Tablet 12.5 mg PO HS pantoprazole 40 mg Tablet,Delayed Release (Dr/Ec) 40 mg PO BID
[2022-07-12 13:26] VITALS: BP 114/84; PULSE 96; RESP 20; TEMP 36.7; O2SAT 99
--- NOTE | 2022-07-13 08:56 | PM.OBDSVD ---
DS: Admitting Diagnosis Discharge Date 07/11/22 Admitting Diagnosis IOL DS: Discharge Diagnosis Discharge Diagnosis (1) Vaginal delivery: Code(s): O80 - Encounter for full-term uncomplicated delivery Status: Acute OB - DS: Summary OB Procedures : None OB Procedures Intrapartum: Spontaneous Vag Delivery OB Procedures: : None Time Spent with Patient Time attestation: Total time spent providing and/or coordinating discharge services: Discharge Plan Discharge Attending physician on discharge: Ruben Espinosa Consulting providers: Mago Hull ; David Hendrix ; Onel Wolf ; Shakila Wright Discharging Clinician: Mago Hull Patient Disposition: Home, Self-Care Activity: pelvic rest Diet: regular Discharge Instructions: Education: Mom and Baby Guide Given to: Follow-Up: Call your delivering provider's office for an appointment to be seen in: 4 Weeks Mom and baby should come to the [facility] for the follow-up appointment. Appointment Date/Time: July 12, 2022 at 1:30 pm What to expect at your follow-up visit: Blood Pressure Check Physical Assessment Call [phone] if you are unable to keep your appointment time. BREAST CARE: * Wear a snug supportive bra. * For engorgement discomfort Bottle Feeding: * May apply ice packs EPISIOTOMY/PERINEAL CARE: * Until bleeding stops, use your maureen bottle after urinating * Change your pad frequently throughout the day * You may take sitz baths several times a day (fill your bathtub with warm water and soak for 20 minutes.) Do NOT bathe in the water * No tub baths until seen by your physician - You may shower ACTIVITY: * Rest as much as possible. * Do not exercise or lift anything heavier than your baby (such as laundry or other children.) * Avoid stairs or driving as much as possible. * Do not put anything into the vagina. No douching, tampons, or sexual activity until seen by physician. NOTIFY PHYSICIAN IF YOU HAVE ANY QUESTIONS OR IF ANY OF THE FOLLOWING SYMPTOMS OCCUR: * If your episiotomy or incision becomes red, swollen, or more painful than what you have experienced in the hospital. * If your vaginal bleeding becomes foul smelling. * If your vaginal bleeding becomes more heavy than a period or if your bleeding changes from pink to bright red. However, you may pass an occasional walnut-sized clot once or twice for the first week . * If you experience a sharp, shooting pain in you calves. * If you discover a hard, reddened area on your breast or if you experience flu-like symptoms. DIET: * Eat regular, well-balanced meals. * Drink plenty of fluids daily. Stand Alone Forms: General Discharge Information Follow-up/Referrals: Shakila Wright CNM [Certified Nurse Under Trimmer] - 4 Weeks Discharge Medications: New ibuprofen 600 mg Tablet 600 mg PO Q6H PRN (Reason: Cramping) Qty: 30 0RF hydrocodone-acetaminophen 5-325 mg Tablet 1 tablet PO Q3H PRN (Reason: Moderate Pain (4-6)) Qty: 15 0RF Continued montelukast 10 mg tablet 10 mg PO DAILY albuterol sulfate [ProAir HFA] 90 mcg/actuation HFA aerosol inhaler 1 - 2 puff inhalation Q4-6H PRN (Reason: shortness of breath or wheezing) Qty: 8.5 2RF pyridoxine (vitamin B6) 25 mg Tablet 100 mg PO HS cetirizine [Zyrtec] 10 mg Tablet 10 mg PO DAILY PNV cmb#95-ferrous fumarate-FA [] 28 mg iron- 800 mcg Tablet 1 tablet PO DAILY prenat.vits,sofiya,qtu-kvko-oooob Tablet 1 tablet PO DAILY Qvar RediHaler 40 mcg/actuation HFA aerosol breath activated 1 inh inhalation DAILY Rx Instructions: Rinse mouth and spit after each use. levothyroxine 50 mcg tablet 50 mcg PO DAILY Qty: 90 0RF Rx Instructions: Due for appt, no additional refills until appt made Discontinued diphenhydramine HCl [Benadryl] 25 mg capsule 25 mg PO
== END 2022-07-11 11:18 | disposition home or self-care (01) | DRG 807 ==
LOC: ANHLDR 07:37 → ANHOB2 07-10 00:20
PROVIDERS: Advanced Practice Midwife; Admitting Provider Obstetrics & Gynecology; PCP Physician Assistant Medical; Referring Provider Advanced Practice Midwife; Visit Provider Obstetrics & Gynecology
DX: O99.284 Endocrine, nutritional and metabolic diseases complicating childbirth (principal); Z37.0 Single live birth; E03.9 Hypothyroidism, unspecified; O70.1 Second degree perineal laceration during delivery; Z3A.39 39 weeks gestation of pregnancy; O99.52 Diseases of the respiratory system complicating childbirth; J45.909 Unspecified asthma, uncomplicated
CPT/HCPCS: 36415; 85014; 85018; 85025; 86592; 86850; 86900; 86901; A9270; J2405; J2590; J2795; J7120

== ENCOUNTER → 2022-10-11 08:25 | Outpatient (CLI) | payer BC, SELFPAY ==
--- NOTE | ~2022-10-11 | CT_ITS ---
EXAMINATION: CT IAC/mastoids BI wo con DATE: 10/11/2022 08:45 INDICATION: Ear pain TECHNIQUE: Computed tomography (CT) of the temporal bones was performed without intravenous contrast. The dose-length product was 198.39 mGy-cm. COMPARISON: None FINDINGS: Orbits and visualized portions of the paranasal sinuses are normal. Visualized portion of the brain a ppears normal with normal and symmetric ventricles. No mass/mass effect. RIGHT TEMPORAL BONE: External auditory canal is normal. Mastoid air cells and middle ear cavities are clear. Scutum is nor mal with no abnormal density project space. Ossicular chain and oval window are unremarkable. The poncho rly indiscernible tympanic membrane is normal. The internal auditory canal, cochlea, vestibule, semic ircular canals, oval window and vestibular aqueduct are all normal. No abnormalities identified along the course of the facial nerve. The jugular bulb and carotid canal are unremarkable. LEFT TEMPORAL BONE: External auditory canal is normal. Mastoid air cells and middle ear cavities are clear. Scutum is nor mal with no abnormal density project space. Ossicular chain and oval window are unremarkable. The poncho rly indiscernible tympanic membrane is normal. The internal auditory canal, cochlea, vestibule, semic ircular canals, oval window and vestibular aqueduct are all normal. No abnormalities identified along the course of the facial nerve. The jugular bulb and carotid canal are unremarkable. IMPRESSION: 1. Normal temporal bone CT. Reviewed, dictated and finalized at location A. IMPRESSION: 1. Normal temporal bone CT.
== END ==
PROVIDERS: PCP Physician Assistant Medical; Visit Provider Physician Assistant Medical
DX: H93.90 Unspecified disorder of ear, unspecified ear (principal); H69.80 Other specified disorders of Eustachian tube, unspecified ear
CPT/HCPCS: 70480

== ENCOUNTER 2022-11-20 14:25 | Outpatient (CLI) | payer BC, SELFPAY ==
--- NOTE | ~2022-11-20 | XR_ITS ---
AP and lateral views of the bilateral hips Clinical history: Pain Findings: No acute fracture or dislocation is seen. Osseous alignment is anatomic. Bilateral hip and SI joint spaces are preserved. Soft tissues are unremarkable. Impression: No significant abnormality is seen. Reviewed, dictated and finalized at location . Impression: No significant abnormality is seen.
--- NOTE | ~2022-11-20 | XR_ITS ---
EXAMINATION: XR_[id number]_CR, XR_[id number]_CR DATE: 11/20/2022 15:56 INDICATION: Multiple joint pain TECHNIQUE: 1. Standing AP and lateral views of the left knee were obtained 2. Standing AP and lateral views of the right knee were obtained COMPARISON: None. FINDINGS: Normal alignment at the bilateral knees. No fractures. Joint spaces are normal at all 3 compartments of both knees. Sclerotic bone island at the right lateral tibial plateau. Soft tissues are unremarkab le with no knee joint effusions. IMPRESSION: 1. Negative bilateral knee radiographs. Reviewed, dictated and finalized at location B. IMPRESSION: 1. Negative bilateral knee radiographs.
--- NOTE | ~2022-11-20 | XR_ITS ---
EXAMINATION: XR shoulder RT min 2V, XR shoulder LT min 2V DATE: 11/20/2022 15:56 INDICATION: Multiple joint pain TECHNIQUE: 1. AP internally and externally rotated and transscapular Y views of the left shoulder were obtained. 2. AP internally and externally rotated and transscapular Y views of the right shoulder were obtained . COMPARISON: None FINDINGS: Normal alignment at both shoulders. No fracture. The bilateral glenohumeral and acromioclavicular hesham int spaces are normal. No erosions or osteophytosis. Soft tissues are unremarkable. Visualized portio n of the lungs are clear. IMPRESSION: Negative bilateral shoulder radiographs. Reviewed, dictated and finalized at location B. IMPRESSION: Negative bilateral shoulder radiographs.
--- NOTE | ~2022-11-20 | XR_ITS ---
EXAMINATION: XR hand LT 2V, XR wrist RT 2V, XR wrist LT 2V, XR hand RT 2V DATE: 11/20/2022 15:56 INDICATION: Multiple joint pain. TECHNIQUE: 1. Posteroanterior and lateral views of the left wrist were obtained. 2. Dorsal palmar and lateral views of the left hand were obtained. 3. Posteroanterior and lateral views of the right wrist were obtained. 4. Dorsal palmar and lateral views of the right hand were obtained. COMPARISON: None. FINDINGS: Relatively symmetric approximately 2 mm ulnar positive variance at both the left and right wrists. Ot herwise normal alignment at the bilateral hands and wrists. No fracture identified. Joint spaces are normal. No erosions to suggest an inflammatory arthritis. Soft tissues are unremarkable. IMPRESSION: 1. Incidental 2 mm ulnar positive variance at both the left and right wrists. Otherwise normal bilate ral hand and wrist radiographs. Reviewed, dictated and finalized at location B. IMPRESSION: 1. Incidental 2 mm ulnar positive variance at both the left and right wrists. O therwise normal bilateral hand and wrist radiographs. IMPRESSION: 1. Incidental 2 mm ulnar positive variance at both the left and right wrists. O therwise normal bilateral hand and wrist radiographs. IMPRESSION: 1. Incidental 2 mm ulnar positive variance at both the left and right wrists. O therwise normal bilateral hand and wrist radiographs.
--- NOTE | ~2022-11-20 | XR_ITS ---
EXAMINATION: XR foot LT 2V, XR ankle RT 2V, XR ankle LT 2V, XR foot RT 2V DATE: 11/20/2022 15:56 EXAMINATION: XR foot LT 2V, XR ankle RT 2V, XR ankle LT 2V, XR foot RT 2V DATE: 11/20/2022 15:56 INDICATION: Multiple joint pain TECHNIQUE: 1. Anteroposterior and lateral view of the left ankle were obtained. 2. Dorsoplantar and lateral views of the left foot were obtained. 3. Anteroposterior and lateral view of the right ankle were obtained. 4. Dorsoplantar and lateral views of the right foot were obtained. COMPARISON: None. FINDINGS: Alignment of the bilateral feet and ankles is normal. No fracture or osteochondral lesion. Joint spac es are well maintained. No erosions or periosteal reaction. No ankle joint effusion. Small left plant ar calcaneal spur. The soft tissues are unremarkable. IMPRESSION: 1. Small left plantar calcaneal spur. Otherwise unremarkable radiographs of the bilateral feet and an kles. Reviewed, dictated and finalized at location B. IMPRESSION: 1. Small left plantar calcaneal spur. Otherwise unremarkable radiographs of the bilateral feet and ankles. IMPRESSION: 1. Small left plantar calcaneal spur. Otherwise unremarkable radiographs of the bilateral feet and ankles. IMPRESSION: 1. Small left plantar calcaneal spur. Otherwise unremarkable radiographs of the bilateral feet and ankles.
== END 2022-11-20 14:26 ==
LOC: MICIMG 14:27
PROVIDERS: PCP Physician Assistant Medical; Visit Provider Internal Medicine Rheumatology
DX: M25.512 Pain in left shoulder (principal); M25.511 Pain in right shoulder; R93.6 Abnormal findings on diagnostic imaging of limbs; M77.32 Calcaneal spur, left foot; M25.552 Pain in left hip; M25.551 Pain in right hip; M25.562 Pain in left knee; M25.561 Pain in right knee; M25.572 Pain in left ankle and joints of left foot; M25.571 Pain in right ankle and joints of right foot; M25.532 Pain in left wrist; M25.531 Pain in right wrist; M25.542 Pain in joints of left hand; M25.541 Pain in joints of right hand
CPT/HCPCS: 73030; 73100; 73120; 73521; 73560; 73600; 73620

== ENCOUNTER 2025-01-11 00:25 | Day surgery (SDC) | payer BC, SELFPAY ==
[2025-01-10 13:24] VITALS: BMI 30.9
--- NOTE | 2025-01-10 13:25 | PC.NURSE ---
Report to the Outpatient Waiting Room, entrance under the green pavilion located off [facility], at time _1000_ on date _[id number]_. Planned Procedure Time: _1200_.? Time changes happen often and if your time is changed the preop area will call you the afternoon before. - You and your visitor will be asked to self-screen and do not enter if you have any COVID symptoms. Please call surgeon if you need to reschedule. - A mask is optional within the hospital at this time. Patients may have clear liquids (water, carbonated beverages, clear teas, apple juice) until 3 hours prior to surgery with a maximum of 20 ounces. - No food from midnight until time of surgery and no smoking, or chewing tobacco (or any form of nicotine). No chewing gum, candy or mints. Take only the following medications with a SIP of water on the morning of surgery: ___Levothyroxine, Sertraline and Nasal sprays.___ DO NOT STOP ANY OF YOUR OTHER PRESCRIPTION MEDICATIONS PRIOR TO SURGERY EXCEPT THE FOLLOWING Hold all vitamins and supplements for 3 days per anesthesiologist. Medications to discontinue per physician Date to take last dose____ Please no make-up, nail swazi, hairspray, perfume, deodorant, or body powder the day of surgery.? No jewelry (including any body piercings) or valuables the day of surgery, leave them at home.? Please take a shower or bath the night before, or the morning of, surgery with an antibacterial soap.? Wear comfortable, loose fitting clothing.? - Jewelry must be removed prior to entering the operating room.? Rings and piercings that are not removed may be cut off. - The hospital will not accept responsibility for valuables.? - Please leave all valuables, including medications, at home the day of surgery. If you are going home after surgery, a licensed vibratory pile driver must drive you home.? - NO public transportation without another adult if you receive anesthesia. - We recommend that an adult stay with you for 24 hours following discharge. - We also recommend that you do not drive, make important decision, drink alcoholic beverages, or take any drugs that were not prescribed by your health care provider for at least 24 hours after your discharge time. Follow any additional instructions given to you from your surgeon. Telephone instructions given to __Yvonne__and asked if any additional questions and then verbalized understanding. Patient advised to call surgeon office or pre surgery nurse liaison [phone] if any additional questions.
[2025-01-11] VITALS (9 sets, daily range): BP systolic 102–121; BP diastolic 62–75; PULSE 67–86; RESP 12–16; TEMP 36.6–36.7; O2SAT 94–98; BMI 31.1
[2025-01-11] MEDS: LACTATED RINGERS 1,000 ML 30 ML IV CONT ×2 (10:30→13:09)
[2025-01-11] MEDS: ACETAMINOPHEN 500 MG TABLET 1000 MG PO (10:35)
[2025-01-11] MEDS: KETOROLAC 15 MG/ML VIAL (*BKC) IV PUSH (10:35)
--- NOTE | 2025-01-11 10:58 | P.PNAN_ITS ---
Anes - Initial Pre Proc Eval Procedure: Operation Date: 01/11/25 12:00 Proposed Procedures p Diagnostic Laparoscopy, Possible Removal of Ectopic , Possible Left Oophorectomy - iVjay Lawson MD s Suction Dilatation and Curettage - Vijay Lawson MD Date/Time: 01/11/25 10:58 Surgeon: Vijay Lawson MD Pre Op Diagnosis: left ovarian cyst, missed AB Patient Data Age: 35 Gender: F Height: 1.63 m Weight: 82.15 kg Last Vital Signs Temp 36.6 C 01/11/25 10:00 Pulse 73 01/11/25 10:00 Resp 14 01/11/25 10:00 BP 114/72 01/11/25 10:00 Pulse Ox 96 01/11/25 10:00 O2 Del Method Room Air 01/11/25 10:00 Allergies Allergy/AdvReac Type Severity Reaction Status Date / Time ceftriaxone (From Rocephin) Allergy Rash Verified 01/11/25 10:16 Sulfa (Sulfonamide Allergy Swelling Verified 01/11/25 10:16 Antibiotics) of Lip/Tongue/Throat Home Medications ?Medication ?Instructions ?Recorded ?Confirmed ?Type cetirizine 10 mg tablet (Zyrtec) 10 mg PO DAILY 03/21/20 01/10/25 History dextroamphetamine-amphetamine ER 15 mg PO DAILY #30 caps 04/15/24 01/10/25 Rx 15 mg 24hr capsule,extend release (Adderall XR) albuterol sulfate 90 mcg/actuation 1 - 2 puff inhalation Q4-6H PRN 06/07/24 01/10/25 Rx aerosol inhaler shortness of breath or wheezing #8.5 grams azelastine 137 mcg (0.1 %) nasal 1 spray intranasal Q12H #90 mL 06/07/24 01/10/25 Rx spray fluticasone propionate 50 See Rx Instructions .Route 06/07/24 01/11/25 Rx mcg/actuation nasal .COMPLEX 90 days #48 grams spray,suspension Qvar RediHaler 40 mcg/actuation See Rx Instructions .Route 11/01/24 01/10/25 Rx HFA breath activated aerosol .COMPLEX #21.2 grams (beclomethasone dipropionate) levothyroxine 50 mcg tablet 50 mcg PO DAILY #90 tabs 04/14/25 06/24/25 Rx pantoprazole 40 mg tablet,delayed 40 mg PO QAM #90 tabs 11/01/24 01/10/25 Rx release sertraline 50 mg tablet 75 mg (1.5 x 50 mg) PO DAILY #135 11/15/24 01/11/25 Rx tabs Patient hx anesthesia problems: post op nausea/vomiting Family hx anesthesia problems: none Results Review: All pre-operative results and documents have been reviewed as part of the pre- operative evaluation. [facility] Past Medical History Medical History (Updated 01/11/25 @ 11:04 by Vijay Lawson MD) Hypertension History of lumbar puncture 03/03, required blood patch 03/05 ADD (attention deficit disorder) Anxiety with depression Back pain Undifferentiated connective tissue disease Relapsing polychondritis GERD (gastroesophageal reflux disease) Seasonal allergies Asthma Hypothyroid Surgical History Surgical History History of endoscopy History of facial surgery History of surgery on arm Family History Family History Mother Hypertension Diabetes type 2, controlled Rheumatoid arteritis Depression Father Hypertension Acute myocardial infarction Grandparent Cerebrovascular accident Brain aneurysm Sibling Depression Degenerative disc disease Asthma Social History Social History Social History: 10/14/24 somewhat confident with medical forms Smoking status: Never smoker Second hand tobacco smoke exposure: No Alcohol intake: former Substance use: never Substance use type: marijuana Other substance usage details: Gummies very rarely Do You Feel Safe in your Home?: Yes Lack of Transportation: No Lack of Food: Sometimes True Current Housing: I Have Housing Concerned About Future Housing: No Difficulty Paying Gas/Electric Bills: YES Difficulty Paying for Meds: YES Currently Unemployed: No Education: Bachelor's Degree Difficulty w/ Childcare or Family Care: No Living arrangements: with family Occupation/Education: unemployed Gender identity (if verbalized by the patient): Female Sexual Orientation (if Verbalized by the Patient): Straight or Heterosexual Spiritual care concerns: No Anes - Eval Final PreProcedure Day of Procedure 01/11/25 10:58 Patient weight: obese Heart: regular rate and rhythm Lungs: clear to auscultation Airway: Mallampati scale class II Neurological: alert and oriented Last oral intake: >/= 8 hours ASA classification: III Emergent: no Anesthetic plan: proceed Anesthesia type and monitoring: general ETT and standard monitoring Results Review: All pre-operative results and documents have been reviewed as part of the pre- operative evaluation. Informed Consent: The patient's anesthetic plan and its attendant risks and benefits were discussed with the patient/family/POA. Questions were solicited and answers provided to the satisfaction of the patient/family/POA.
--- NOTE | 2025-01-11 10:59 | P.HP_ITS ---
H&P: HPI History of Present Illness Date/Time: 01/11/25 10:59 Chief Complaint: miscarriage, possible ectopic Narrative: Patient is a 35 year old who presents for suction D&C and diagnostic laparoscopy. She was diagnosed with a missed on 01/07 by US with no heart tones after previously having appropriately growing IUP. She has also been monitored closely for a possible heterotopic , due to a suspicious cystic lesion in the left adnexa. There has been no growth in this area and no pole was ever seen, however MFM had some concern for heterotopic . Risks and benefits of miscarriage management were discussed with the patient, including options of expectant, medical and surgical management. She desires to proceed with surgical management of missed misca rriage, as well as diagnostic laparoscopy with possible left ovarian cystectomy and possible removal of ectopic . 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 GERD (gastroesophageal reflux disease) Seasonal allergies Asthma Hypothyroid Surgical History Surgical History History of endoscopy History of facial surgery History of surgery on arm Family History Family History Mother Hypertension Diabetes type 2, controlled Rheumatoid arteritis Depression Father Hypertension Acute myocardial infarction Grandparent Cerebrovascular accident Brain aneurysm Sibling Depression Degenerative disc disease Asthma Social History Social History Social History: 10/14/24 somewhat confident with medical forms Smoking status: Never smoker Second hand tobacco smoke exposure: No Alcohol intake: former Substance use: never Substance use type: marijuana Other substance usage details: Gummies very rarely Do You Feel Safe in your Home?: Yes Lack of Transportation: No Lack of Food: Sometimes True Current Housing: I Have Housing Concerned About Future Housing: No Difficulty Paying Gas/Electric Bills: YES Difficulty Paying for Meds: YES Currently Unemployed: No Education: Bachelor's Degree Difficulty w/ Childcare or Family Care: No Living arrangements: with family Occupation/Education: unemployed Gender identity (if verbalized by the patient): Female Sexual Orientation (if Verbalized by the Patient): Straight or Heterosexual Spiritual care concerns: No Meds Home Medications and Allergies Home Medications ?Medication ?Instructions ?Recorded ?Confirmed ?Type cetirizine 10 mg tablet (Zyrtec) 10 mg PO DAILY 03/21/20 01/10/25 History dextroamphetamine-amphetamine ER 15 mg PO DAILY #30 caps 04/15/24 01/10/25 Rx 15 mg 24hr capsule,extend release (Adderall XR) albuterol sulfate 90 mcg/actuation 1 - 2 puff inhalation Q4-6H PRN 06/07/24 01/10/25 Rx aerosol inhaler shortness of breath or wheezing #8.5 grams azelastine 137 mcg (0.1 %) nasal 1 spray intranasal Q12H #90 mL 06/07/24 01/10/25 Rx spray fluticasone propionate 50 See Rx Instructions .Route 06/07/24 01/11/25 Rx mcg/actuation nasal .COMPLEX 90 days #48 grams spray,suspension Qvar RediHaler 40 mcg/actuation See Rx Instructions .Route 11/01/24 01/10/25 Rx HFA breath activated aerosol .COMPLEX #21.2 grams (beclomethasone dipropionate) levothyroxine 50 mcg tablet 50 mcg PO DAILY #90 tabs 11/01/24 01/11/25 Rx pantoprazole 40 mg tablet,delayed 40 mg PO QAM #90 tabs 11/01/24 01/10/25 Rx release sertraline 50 mg tablet 75 mg (1.5 x 50 mg) PO DAILY #135 11/15/24 01/11/25 Rx tabs Allergies Allergy/AdvReac Type Severity Reaction Status Date / Time ceftriaxone (From Rocephin) Allergy Rash Verified 01/11/25 10:16 Sulfa (Sulfonamide Allergy Swelling Verified 01/11/25 10:16 Antibiotics) of Lip/Tongue/Throat Vital Signs Vital Signs - 24 hr 01/11/25 10:00 Temperature 98 F Pulse Rate 73 Respiratory Rate 14 Blood Pressure 114/72 Pulse Oximetry 96 Oxygen Delivery Room Air Exam Const: General: comfortable and no acute distress Eyes: General: appearance normal, both eyes and all related structures Resp: Effort & Inspection: normal respiratory effort Cardio: Rate: regular rate Skin: General skin exam: normal color Extrem: General: normal to inspection Assessment and Plan Assessment and plan (1) Missed : Code(s): O02.1 - Missed Status: Acute Assessment and Plan: - discussed management options and risks and benefits of each - patient desires surgical management with suction D&C (2) Left ovarian cyst: Code(s): N83.202 - Unspecified ovarian cyst, left side Status: Acute Assessment and Plan: - vs possible left ectopic - discussed addition of diagnostic laparoscopy with removal of cyst vs ectopic at time of suction D&C - risks and benefits discussed and patient would like to proceed with diagnostic laparoscopy, possible left ovarian cystectomy, possible removal of ectopic
--- NOTE | 2025-01-11 11:57 | WPDHPUPDATE1 ---
History and Physical Update Update Date/Time: 01/11/25 11:57 History and Physical has been reviewed, including an updated exam of the patient. There are NO changes in the patient's condition. Risks, benefits, and alternatives have been discussed and questions answered. Patient agrees to proceed with procedure.
--- NOTE | 2025-01-11 11:59 | W.PM.PROC2 ---
Procedure Note - Detailed Date of Procedure 01/11/25 Pre-op Diagnosis left ovarian cyst, missed AB, possible ectopic Post-op Diagnosis Same Procedure Performed suction D&C, diagnostic laparoscopy Surgeon Vijay Lawson MD Anesthesia General Indications missed at 8 weeks, left cystic ovarian mass with possible ectopic Findings normal appearing 8 week gestation uterus, normal appearing bilateral fallopian tubes, normal right ovary; left ovary with two separate cysts, no evidence of ectopic Description of Procedure The patient was then taken to the operating room with IVFs running. She was placed in the dorsal supine position where she received general anesthesia without any difficulty.?? The patient was placed in the dorsal lithotomy position using tatiana stirrups. EUA revealed the above findings. She was then prepped and draped in a normal sterile fashion. A time-out procedure was performed and all members of the OR team agreed on the patient and plan. A red robinelle catheter was inserted under sterile technique, draining clear urine. A bivalve speculum was inserted into the vagina. The anterior lip of the cervix was grasped with a ring forcep. An acorn manipulator was then inserted into the cervix. The tenaculum and speculum were then removed. Gloves were then changed. Attention was turned to the patient's abdomen where the infraumbilical fold was incised with a scalpel, making a 5 mm vertical incision. While tenting the patient's abdomen an Optiview trocar was placed under direct vision and intraabdominal placement was confirmed with an opening pressure of 4 mm Hg. CO2 gas was then insufflated to achieve an intraperitoneal pressure of 15 mm Hg. Placement was confirmed by laparoscope. Underlying organs were inspected and found to be free of injury. The patient's pelvis was examined and the above listed findings noted. A 5 mm skin incision was then made in the left lower quadrant. A 5 mm bladeless trocar was then inserted into the peritoneal cavity under direct visualization. An alligator grasper was then used to further inspect the pelvis. The abdomen was then inspected. The appendix, gallbladder, and liver were normal in appearance. The secondary trocars were then removed from the patient's abdomen. The pneumoperitoneum was expelled and the umbilical trocar removed. The skin incisions were then reapproximated with 4-0 Biosyn in a subcuticular fashion. All incisions were then injected with local anesthetic. Indermil was then placed over the incisions. A bivalved speculum was then reinserted into the patient's vagina.?The acorn manipulator was removed. The cervical os was dilated using klayan dilators to accommodate a 8mm curette.? The suction curette was tested outside the patient and found to be working properly.? The curette was then advanced into the intrauterine cavity and circumferentially removed.? All products of conception were removed until little tissue was seen passing through the tubing.? The specimen was sent to pathology and for genetic testing.? The ring forceps was removed from the anterior lip of the cervix, which was hemostatic.? The bivalve speculum was removed.? The patient tolerated the procedure well.? Sponge, lap, needle, and instrument counts were correct X3.? The patient was awakened from anesthesia and taken to the recovery room in stable condition. Estimated Blood Loss 10 Pathology Yes Condition Stable Disposition Same day
--- NOTE | 2025-01-11 12:55 | S_PTH ---
PATIENT: Yvonne Guzman LOC: [facility] U#:[id number] AGE/SX: 35/F ROOM: RE01/11/[address]: Vijay Lawson MD : 1990 BED: DIS: 01/11/2025 SPEC #: [id number] RECD: 01/11/25 13:17 STATUS: LEANDRA REQ #: [id number] ARMAND: 01/11/25 12:[address]: Vijay Lawson DEPT: [facility] Surgical RECD BY: Farzana Almanzar ENTERED: 01/11/25 13:17 SP TYPE: Surgical OTHR DR: Andree Amado PA-C Tissues: A - Products of Conception Procedures: Hematoxylin and Eosin Stain Gross and Microscopic Level 4 Chromosome Anaylsis
[2025-01-11] MEDS: fentaNYL CITRATE INJ (*CRX) 100 MCG/2 ML VIAL 25 MCG IV PUSH ×2 (13:53→13:57)
[2025-01-11] MEDS: DOXYCYCLINE HYCLATE 100 MG TABLET PO (14:33)
[2025-01-11] MEDS: oxyCODONE HCL (*CRX) 5 MG TAB IR PO (14:34)
== END 2025-01-11 15:20 | disposition home or self-care (01) ==
PROVIDERS: PCP Physician Assistant Medical; Visit Provider Obstetrics & Gynecology
PROC: (CPT 49320; principal; 2025-01-11 12:00)
PROC: (CPT 59820; 2025-01-11 12:00)
DX: O02.1 Missed abortion (principal); N83.292 Other ovarian cyst, left side; O23.591 Infection of other part of genital tract in pregnancy, first trimester; I10 Essential (primary) hypertension; E03.9 Hypothyroidism, unspecified; K21.9 Gastro-esophageal reflux disease without esophagitis; J45.909 Unspecified asthma, uncomplicated; F41.8 Other specified anxiety disorders; F98.8 Other specified behavioral and emotional disorders with onset usually occurring in childhood and adolescence; F12.90 Cannabis use, unspecified, uncomplicated; Z79.51 Long term (current) use of inhaled steroids; Z98.890 Other specified postprocedural states; Z86.39 Personal history of other endocrine, nutritional and metabolic disease; Z82.49 Family history of ischemic heart disease and other diseases of the circulatory system
CPT/HCPCS: 59820; 88264; 88305; A9270; J1100; J1885; J2003; J2004; J2250; J2405; J2704; J3010; J7030; J7120; Q9968